=== PATIENT | male | born 1945 | race Caucasian/White ===

== ENCOUNTER → 2017-11-20 | Outpatient (CLI) | payer MEDICARE ==
[~2017-11-20] MED LIST: AEC81 PO; GARLIC PO; IOPAMIDOL-370 100 ML VIAL IV ONE; METO25TA6 PO; MULT-1203 PO; VITAMIN C PO; VITAMIN E PO
== END | disposition home or self-care (01) ==
LOC: OIH 08:15
PROVIDERS: ATTEND Internal Medicine Cardiovascular Disease
DX: I71.4 Abdominal aortic aneurysm, without rupture (principal); N28.1 Cyst of kidney, acquired
CPT/HCPCS: 71275; 74174; Q9967

== ENCOUNTER → 2018-07-03 | Outpatient (CLI) | payer MEDICARE ==
[~2018-07-03] MED LIST changes: -IOPAMIDOL-370 100 ML VIAL IV ONE
== END | disposition home or self-care (01) ==
LOC: SHCH 08:10
PROVIDERS: ATTEND Internal Medicine Cardiovascular Disease
DX: I71.4 Abdominal aortic aneurysm, without rupture (principal)
CPT/HCPCS: 93978

== ENCOUNTER → 2019-08-05 | Outpatient (CLI) | payer MEDICARE | END | disposition home or self-care (01) | LOC: SHCH 09:20 | PROVIDERS: ATTEND Internal Medicine Cardiovascular Disease | DX: I35.1 Nonrheumatic aortic (valve) insufficiency (principal); R01.1 Cardiac murmur, unspecified | CPT/HCPCS: 93306; 93356 ==

== ENCOUNTER → 2021-01-11 | Outpatient (CLI) | payer MEDICARE | END | disposition home or self-care (01) | LOC: SHCH 07:31 | PROVIDERS: ATTEND Internal Medicine Cardiovascular Disease | DX: I71.4 Abdominal aortic aneurysm, without rupture (principal) | CPT/HCPCS: 93978 ==

== ENCOUNTER → 2023-02-14 | Outpatient (CLI) | payer MEDICARE ==
[2023-02-14 12:01] LABS: CREATININE 1.1 mg/dL (0.5-1.5); POTASSIUM 4.3 mmol/L (3.5-5.1)
== END | disposition home or self-care (01) ==
LOC: LAB 08:09
PROVIDERS: ATTEND Internal Medicine Cardiovascular Disease
DX: I48.20 Chronic atrial fibrillation, unspecified (principal); Z95.820 Peripheral vascular angioplasty status with implants and grafts
CPT/HCPCS: 36415; 80048

== ENCOUNTER → 2023-03-04 | Outpatient (CLI) | payer MEDICARE ==
[~2023-03-04] MED LIST changes: +IOHEXOL 350 MG/ML 100ML INFUS..BTL IV ONE
== END | disposition home or self-care (01) ==
LOC: RAH 08:36
PROVIDERS: ATTEND Internal Medicine Cardiovascular Disease
DX: I72.3 Aneurysm of iliac artery (principal); I71.40 Abdominal aortic aneurysm, without rupture, unspecified; I25.10 Atherosclerotic heart disease of native coronary artery without angina pectoris; M47.815 Spondylosis without myelopathy or radiculopathy, thoracolumbar region; I70.0 Atherosclerosis of aorta; N28.1 Cyst of kidney, acquired
CPT/HCPCS: 74174; Q9967

== ENCOUNTER → 2023-04-12 | Outpatient (CLI) | payer MEDICARE ==
[~2023-04-12] MED LIST changes: +APIX5TAB PO; +BETA CAROTENE PO; -GARLIC PO; -IOHEXOL 350 MG/ML 100ML INFUS..BTL IV ONE
== END | disposition home or self-care (01) ==
LOC: RAH 09:21
PROVIDERS: ATTEND Internal Medicine Cardiovascular Disease
DX: I71.40 Abdominal aortic aneurysm, without rupture, unspecified (principal); R60.0 Localized edema; I72.3 Aneurysm of iliac artery; Z95.820 Peripheral vascular angioplasty status with implants and grafts
CPT/HCPCS: 76775; 93970

== ENCOUNTER → 2023-07-15 | Outpatient (CLI) | payer MEDICARE | END | disposition home or self-care (01) | LOC: SHCH 09:49 | PROVIDERS: ATTEND Internal Medicine Cardiovascular Disease | DX: I35.1 Nonrheumatic aortic (valve) insufficiency (principal); I25.10 Atherosclerotic heart disease of native coronary artery without angina pectoris | CPT/HCPCS: 93306 ==

== ENCOUNTER → 2023-07-17 | Outpatient (CLI) | payer MEDICARE ==
[2023-07-17 12:34] LABS: CREATININE 1.1 mg/dL (0.5-1.5); POTASSIUM 4.9 mmol/L (3.5-5.1)
== END | disposition home or self-care (01) ==
LOC: LAB 09:36
PROVIDERS: ATTEND Internal Medicine Cardiovascular Disease
DX: I10 Essential (primary) hypertension (principal)
CPT/HCPCS: 36415; 80048

== ENCOUNTER → 2023-07-19 | Outpatient (CLI) | payer MEDICARE ==
[~2023-07-19] MED LIST changes: +IOHEXOL 350 MG/ML 100ML INFUS..BTL IV ONE
== END | disposition home or self-care (01) ==
LOC: RAH 07:57
PROVIDERS: ATTEND Internal Medicine Cardiovascular Disease
DX: I71.40 Abdominal aortic aneurysm, without rupture, unspecified (principal)
CPT/HCPCS: 74174; Q9967

== ENCOUNTER 2024-03-26 08:23 | Emergency (ER) | payer MEDICARE ==
[~2024-03-26] VITALS: Ht 177.8 cm; Wt 95.3 kg
[2024-03-26 08:23] VITALS: BP 0/0; PULSE 0; RESP 0
[~2024-03-26 08:23] MED LIST changes: -IOHEXOL 350 MG/ML 100ML INFUS..BTL IV ONE
== END 2024-03-26 13:01 ==
LOC: EDH 08:23
DX: I46.9 Cardiac arrest, cause unspecified (principal); I10 Essential (primary) hypertension; E78.5 Hyperlipidemia, unspecified; I48.91 Unspecified atrial fibrillation; J44.9 Chronic obstructive pulmonary disease, unspecified; F17.200 Nicotine dependence, unspecified, uncomplicated; Z79.82 Long term (current) use of aspirin; Z79.899 Other long term (current) drug therapy; Z98.890 Other specified postprocedural states
CPT/HCPCS: 92950